=== PATIENT | male | born 1970 | race Caucasian/White ===

== ENCOUNTER 2016-06-02 16:20 | Emergency (ER) | payer MEDICAID, OTHER ==
--- NOTE | 2016-06-02 16:42 | EDM.PDOC ---
ED HPI RENAL/ - General Chief Complaint: Genitourinary Problem Stated Complaint: urine pressure Time Seen by Provider: 06/02/16 16:30 Source of Information: Reports: Patient History Limitations: Reports: No limitations - History of Present Illness INITIAL COMMENTS - FREE TEXT/NARRATIVE: History and physical: History of present illness: [Patient is brought to the emergency room via EMS complaining of lower abdominal pressure and urinary hesitancy. He was brought by ambulance as he does not drive. The patient is deaf. we are able to communicate well through writing and passing notes back and forth. He complains of a pressure in his penis and bladder area as well as difficulty with urination and dribbling. His symptoms began this afternoon. He's not taken any medications for his symptoms. No fever or chills. denies low back pain. No nausea or vomiting. No abdominal pain or decreased appetite. Denies new sexual partners, and has not had any penile discharge. He describes white sediment floating in his urine. No foul odor. Denies any medication allergies. Review of Systems: As per history of present illness and below otherwise all systems reviewed and negative. Past medical history: As per history of present illness and as reviewed below otherwise noncontributory. Surgical history: As per history of present illness and is reviewed below other watson noncontributory. Social history: No reported history of drug or alcohol abuse. Family history: As per history of present illness and is reviewed below otherwise noncontributory. Physical exam: HEENT: Atraumatic, normocephalic. Lungs: Clear to auscultation, breath sounds equal bilaterally,no wheezing crackles or rales. Heart: S1-S2, regular rate and rhythm. Abdomen: Soft, nondistended, nontender. No guarding masses or rebound. Negative for costovertebral tenderness. Pelvis: Stable, nontender. Genitourinary: Deferred. Rectal: Deferred. Extremities atraumatic. no cyanosis or edema to feet or lower legs. Neurovascular unremarkable. Neuro: Awake, alert, oriented. Is deaf. No deficits noted. Motor and sensory unremarkable throughout. Exam nonfocal. Diagnostics: [Urinalysis, urine culture] Therapeutics: [Rocephin 1 g IM, Bactrim DS times one in the ER] Impression: [urinary tract infection] Plan: [UA shows large amount of blood, large amount of leukocyte esterase, greater than 100 white blood cells. Rx written for Bactrim DS BID (#19) si po BID 0 RF's. Rocephin 1 g given IM in the ER. Take home pack for pyridium. Urine culture is pending. Followup with PCP for repeat UA in 7-10 days. All questions are answered and concerns are addressed.] Definitive disposition and diagnosis is appropriate pending reevaluation and review of above. - Related Data Allergies/ADRs: Allergies Allergy/AdvReac Type Severity Reaction Status Date / Time BLEACH Allergy Cannot Uncoded 06/02/16 16:42 Remember DAIRY Allergy Stomach Uncoded 06/02/16 16:42 Upset Home Meds: Home Meds . [No Known Home Meds] 04/17/14 [History] Social & Family History - Tobacco Use Smoking Status *Q: Never Smoker - Alcohol Use Days Per Week of Alcohol Use: 0 - Recreational Drug Use Recreational Drug Use: No ED ROS GENERAL - Review of Systems Review Of Systems: ROS reveals no pertinent complaints other than HPI. ED EXAM, RENAL/ - Physical Exam Exam: See Below Course - Vital Signs Last Recorded V/S: Last Vital Signs Temp 98.2 F 06/02/16 16:20 Pulse 68 06/02/16 16:20 Resp 16 06/02/16 16:20 BP 124/73 06/02/16 16:20 Pulse Ox 95 06/02/16 16:20 - Orders/Labs/Meds Orders: Active Orders 24 hr Category Date Time Status CULTURE URINE [RM] Stat Lab 06/02/16 16:45 Received Sulfamethoxazole/Trimethoprim [Septra DS] Med 06/02/16 17:15 Active 1 tab PO DAILY Medication Orders Trimethoprim/Sulfamethoxazole (Septra Ds) 1 tab PO DAILY KIMBERLEY Labs: Laboratory Tests 06/02/16 Range/Units 16:50 Urine Color Light yellow (YELLOW) Urine Appearance Slightly cloudy (CLEAR) Urine pH 7.0 (4.5-8.0) Ur Specific [place] 1.004 (1.003-1.020) Urine Protein 30 H (NEGATIVE) mg/dL Urine Glucose (UA) Negative (NEGATIVE) mg/dL Urine Ketones Negative (NEGATIVE) mg/dL Urine Occult Blood Large H (NEGATIVE) Urine Nitrite Negative (NEGATIVE) Urine Bilirubin Negative (NEGATIVE) Urine Urobilinogen 0.2 (0.2-1.0) EU/dL Ur Leukocyte Esterase Large H (NEGATIVE) Urine RBC 0-5 (0-5) /HPF Urine WBC >100 H (0-5) /HPF Urine WBC Clumps Moderate H (NOT SEEN) /HPF Ur Epithelial Cells Occasional H (NOT SEEN) /HPF Urine Bacteria Few H (NOT SEEN) /HPF Meds: Medications Generic Name Dose Route Start Last Admin Trade Name Freq PRN Reason Stop Dose Admin Trimethoprim/Sulfamethoxazole 1 tab 06/02/16 17:15 Septra Ds PO DAILY KIMBERLEY Discontinued Medications Generic Name Dose Route Start Last Admin Trade Name Freq PRN Reason Stop Dose Admin Ceftriaxone Sodium 1 gm 06/02/16 17:05 Rocephin IM 06/02/16 17:06 ONETIME ONE Phenazopyridine HCl 1 packet 06/02/16 17:05 Take Home: Phenazopyridine, 4 Tab Pack .XX 06/02/16 17:06 ONETIME ONE Departure - Departure Time of Disposition: 17:15 Disposition: Home, Self-Care 01 Condition: good Clinical Impression: UTI, Urinary tract infectious disease Forms: ED Department Discharge Additional Instructions: The following information is given to patients seen in the emergency department who are being discharged home. This information is to outline your options for follow-up care and provides all patient seen in our emergency department with a follow-up referral. The need for follow-up, as well as the timing and circumstances, are variable depending upon the specifics of each emergency department visit. If you don't have a primary care physician on staff, we will provide you with a referral. We always advise to contact your personal physician following an emergency department visit to inform them of the circumstances of the visit and for follow-up with them and/or the need for any referrals to a consulting specialist. The emergency department will also refer you to a specialist when appropriate. This referral assures that you have the opportunity for follow-up care with a specialist. All of these measures are taken in an effort to provide you with optimal care, which includes your follow-up. Under all circumstances we always encourage you to contact your private physician who remains a resource for coordinating your care. When calling for follow-up care, please make the office aware that this follow-up is from your recent emergency room visit. If for any reason you are refused follow-up please contact the [facility] emergency department at and ask to speak to the emergency department nurse. NET[facility] [address] [address] You've been diagnosed with a urinary tract infection. Followup with your local primary care provider at the clinic listed above in 7 days for a recheck on your urine. Take antibiotics as prescribed. Push fluids, take Tylenol or ibuprofen as needed. Return to ER as needed as discussed. - My Orders Last 24 Hours: My Active Orders 06/02/16 16:45 CULTURE URINE [RM] Stat 06/02/16 17:15 Sulfamethoxazole/Trimethoprim [Septra DS] 1 tab PO DAILY - Assessment/Plan Last 24 Hours: My Active Orders 06/02/16 16:45 CULTURE URINE [RM] Stat 06/02/16 17:15 Sulfamethoxazole/Trimethoprim [Septra DS] 1 tab PO DAILY
[2016-06-02 16:51] VITALS: BP 124/73
[2016-06-02] MEDS ORDERED: cefTRIAXone 1 GM Vial IM ONE (17:05)
[2016-06-02] MEDS ORDERED: Take Home: Phenazopyridine 95 MG Tab, 4 Tab Pack ONE (17:05)
[2016-06-02] MEDS ORDERED: Lidocaine 1% 20 ML MDV ONE (17:13)
[2016-06-02] MEDS ORDERED: Sulfamethoxazole/Trimethoprim 800-160 MG Tab PO SCH (17:15)
== END 2016-06-02 17:45 | disposition home or self-care (01) ==
LOC: CC.ED 16:20
DX: N39.0 Urinary tract infection, site not specified (principal); Z91.011 Allergy to milk products; Z91.09 Other allergy status, other than to drugs and biological substances
CPT/HCPCS: 81001; 87086; 96372; 99284; A9270; J0696

== ENCOUNTER 2017-06-23 00:05 | Emergency (ER) | payer MEDICARE ==
[2017-06-23 00:32] VITALS: BP 97/52
[2017-06-23] MEDS ORDERED: Lidocaine 1% 20 ML MDV INJECT ONE (00:45)
[2017-06-23] MEDS ORDERED: cefTRIAXone 1 GM Vial IM ONE (00:45)
--- NOTE | 2017-06-23 00:45 | EDM.PDOC ---
ED HPI GENERAL MEDICAL PROBLEM - General Chief Complaint: General Stated Complaint: bladder infection Time Seen by Provider: 06/23/17 00:30 Source of Information: Reports: Patient History Limitations: Reports: Language Barrier (is deaf) - History of Present Illness INITIAL COMMENTS - FREE TEXT/NARRATIVE: Patient presents with complaints of cloudy urine, mild abdominal cramping and chills. States has been unable to fall asleep due to chills. Has a long history of bladder infections. Had a colostomy reversal done on June 03, discharged home on the . Was doing well until today. Has loose, watery stools, occasional cramping. Worse this evening. Stools are unchanged. Mild nausea. No fevers. Does still perform self catheterizations which has frequently caused infections in the past. Onset: Today, Gradual Duration: Hour(s): Location: Reports: Abdomen Quality: Reports: Ache Severity: Mild Associated Symptoms: Reports: Fever/Chills, Nausea/Vomiting. Denies: Chest Pain , Cough, Headaches, Loss of Appetite, Shortness of Breath - Related Data Allergies Allergy/AdvReac Type Severity Reaction Status Date / Time sulfamethoxazole Allergy Rash Verified 06/23/17 00:40 BLEACH Allergy Cannot Uncoded 06/23/17 00:14 Remember DAIRY Allergy Stomach Uncoded 06/23/17 00:14 Upset Home Meds: Home Meds Ciprofloxacin HCl [Cipro] 500 mg PO BID #20 tablet 06/23/17 [Rx] Finasteride [Proscar] 5 mg PO DAILY 06/23/17 [History] Past Medical History - Past Health History Medical/Surgical History: Denies Medical/Surgical History HEENT History: Reports: Other (See Below) Other HEENT History: HEARING IMPAIRED Genitourinary History: Reports: UTI, Recurrent - Past Surgical History GI Surgical History: Reports: Colostomy, Other (See Below) Other GI Surgeries/Procedures: RECENT REVERSAL Social & Family History - Family History Family Medical History: Noncontributory - Tobacco Use Smoking Status *Q: Never Smoker Second Hand Smoke Exposure: No - Caffeine Use Caffeine Use: Reports: None - Alcohol Use Days Per Week of Alcohol Use: 0 - Recreational Drug Use Recreational Drug Use: No ED ROS GENERAL - Review of Systems Review Of Systems: See Below Constitutional: Reports: Chills, Malaise, Fatigue. Denies: Fever, Weakness, Decreased Appetite HEENT: Reports: No Symptoms Respiratory: Denies: Shortness of Breath, Cough Cardiovascular: Denies: Chest Pain, Edema, Lightheadedness, Syncope Endocrine: Reports: Fatigue GI/Abdominal: Reports: Abdominal Pain, Diarrhea, Nausea. Denies: Vomiting : Reports: Frequency, Urinary Retention, Other (cloudy urine) Musculoskeletal: Reports: No Symptoms Skin: Reports: No Symptoms Neurological: Reports: No Symptoms ED EXAM, GENERAL - Physical Exam Exam: See Below Exam Limited By: Language Barrier (able to converse well with writing due to deafness) General Appearance: Alert, WD/WN, No Apparent Distress Ears: Normal External Exam Nose: Normal Inspection, Normal Mucosa Throat/Mouth: Normal Inspection, Normal Oropharynx Head: Normocephalic Neck: Normal Inspection, Supple, Non-Tender Respiratory/Chest: No Respiratory Distress, Lungs Clear, Normal Breath Sounds Cardiovascular: Regular Rate, Rhythm GI/Abdominal: Normal Bowel Sounds, Soft, Tender, Other (healing abdominal scar) Extremities: Normal Inspection, Normal Capillary Refill Neurological: Alert, Oriented Skin Exam: Warm, Dry Course - Vital Signs Last Recorded V/S: Last Vital Signs Temp 98.2 F 06/23/17 00:15 Pulse 70 06/23/17 00:15 Resp 18 06/23/17 00:15 BP 97/52 L 06/23/17 00:15 Pulse Ox 98 06/23/17 00:15 - Orders/Labs/Meds Orders: Active Orders 24 hr Category Date Time Status UA W/MICROSCOPIC [URIN] Stat Lab 06/23/17 00:21 Received Departure - Departure Time of Disposition: 00:49 Disposition: Home, Self-Care 01 Condition: Good Clinical Impression: UTI, Urinary tract infectious disease - Discharge Information Referrals: Provider,Unknown [Primary Care Provider] - Additional Instructions: 1. Push fluids 2. Tylenol for fever/chills 3. Cipro 500 mg twice a day for 10 days 4. Follow up if ongoing concerns. - My Orders Last 24 Hours: My Active Orders 06/23/17 00:21 UA W/MICROSCOPIC [URIN] Stat - Assessment/Plan Last 24 Hours: My Active Orders 06/23/17 00:21 UA W/MICROSCOPIC [URIN] Stat
== END 2017-06-23 01:00 | disposition home or self-care (01) ==
LOC: CC.ED 00:05
DX: N39.0 Urinary tract infection, site not specified (principal); Z79.899 Other long term (current) drug therapy; Z88.2 Allergy status to sulfonamides; Z91.011 Allergy to milk products; Z91.09 Other allergy status, other than to drugs and biological substances
CPT/HCPCS: 81001; 87086; 87088; 87186; 96372; 99283; J0696

== ENCOUNTER 2017-07-23 07:26 | Emergency (ER) | payer MEDICARE ==
[2017-07-23 07:34] VITALS: BP 97/74
--- NOTE | 2017-07-23 08:20 | EDM.PDOC ---
ED HPI GENERAL MEDICAL PROBLEM - General Chief Complaint: Genitourinary Problem Stated Complaint: BAD BLADDER INFECTION W/BLOOD Time Seen by Provider: 07/23/17 08:05 Source of Information: Reports: Patient History Limitations: Reports: No Limitations - History of Present Illness INITIAL COMMENTS - FREE TEXT/NARRATIVE: Patient presents today with concerns of a bladder infection. Patient has a history of self catheterization and does get UTIs frequently. He passed a large "mass of tissue or mucous" and has had burning and blood. Denies fevers. States is recovering from bowel surgery but no blood in stools. No other concerns. Onset: Today, Sudden Duration: Hour(s): Location: Reports: Abdomen Quality: Reports: Ache Severity: Mild Associated Symptoms: Denies: Chest Pain, Cough, Fever/Chills, Loss of Appetite, Nausea/Vomiting, Shortness of Breath, Weakness - Related Data Allergies Allergy/AdvReac Type Severity Reaction Status Date / Time sulfamethoxazole Allergy Rash Verified 07/23/17 07:35 BLEACH Allergy Cannot Uncoded 07/23/17 07:35 Remember DAIRY Allergy Stomach Uncoded 07/23/17 07:35 Upset Home Meds: Home Meds Finasteride [Proscar] 5 mg PO DAILY 06/23/17 [History] Past Medical History - Past Health History Medical/Surgical History: Denies Medical/Surgical History HEENT History: Reports: Other (See Below) Other HEENT History: HEARING IMPAIRED Genitourinary History: Reports: UTI, Recurrent - Past Surgical History GI Surgical History: Reports: Colostomy, Other (See Below) Other GI Surgeries/Procedures: RECENT REVERSAL Social & Family History - Family History Family Medical History: Noncontributory - Tobacco Use Smoking Status *Q: Never Smoker - Caffeine Use Caffeine Use: Reports: None - Recreational Drug Use Recreational Drug Use: No ED ROS GENERAL - Review of Systems Review Of Systems: See Below Constitutional: Reports: Malaise. Denies: Fever, Chills, Weakness, Fatigue, Decreased Appetite HEENT: Reports: No Symptoms Respiratory: Denies: Shortness of Breath, Cough Cardiovascular: Denies: Chest Pain, Edema, Lightheadedness Endocrine: Denies: Fatigue GI/Abdominal: Reports: Abdominal Pain. Denies: Black Stool, Bloody Stool, Nausea, Vomiting : Reports: Discharge, Dysuria, Hematuria Musculoskeletal: Reports: No Symptoms Skin: Reports: No Symptoms ED EXAM, RENAL/ - Physical Exam Exam: See Below Exam Limited By: Other (patient is deaf) General Appearance: Alert, WD/WN, No Apparent Distress Ears: Normal External Exam, Normal TMs Head: Normocephalic Neck: Normal Inspection, Supple, Non-Tender Respiratory/Chest: No Respiratory Distress, Lungs Clear, Normal Breath Sounds Cardiovascular: Regular Rate, Rhythm GI/Abdominal: Normal Bowel Sounds, Soft, Non-Tender Extremities: Normal Inspection, Normal Capillary Refill Neurological: Alert, Oriented Course - Vital Signs Last Recorded V/S: Last Vital Signs Temp 96.8 F 07/23/17 07:31 Pulse 71 07/23/17 07:31 Resp 18 07/23/17 07:31 BP 97/74 07/23/17 07:31 Pulse Ox 98 07/23/17 07:31 - Orders/Labs/Meds Orders: Active Orders 24 hr Category Date Time Status CULTURE URINE [RM] Stat Lab 07/23/17 08:27 Received Labs: Laboratory Tests 07/23/17 Range/Units 08:27 Urine Color Yellow (YELLOW) Urine Appearance Slightly cloudy (CLEAR) Urine pH 6.0 (4.5-8.0) Ur Specific [place] <= 1.005 (1.003-1.020) Urine Protein 100 H (NEGATIVE) mg/dL Urine Glucose (UA) Negative (NEGATIVE) mg/dL Urine Ketones Negative (NEGATIVE) mg/dL Urine Occult Blood Large H (NEGATIVE) Urine Nitrite Negative (NEGATIVE) Urine Bilirubin Negative (NEGATIVE) Urine Urobilinogen 0.2 (0.2-1.0) EU/dL Ur Leukocyte Esterase Large H (NEGATIVE) Urine RBC 5-10 H (0-5) /HPF Urine WBC >100 H (0-5) /HPF Ur Squamous Epith Cells Occasional H (NOT SEEN) /HPF Urine Bacteria Moderate H (NOT SEEN) /HPF Urinalysis Comment - Re-Assessments/Exams Free Text/Narrative Re-Assessment/Exam: 07/23/17 08:50 Urine is positive Departure - Departure Time of Disposition: 08:51 Disposition: Home, Self-Care 01 Condition: Good Clinical Impression: UTI, Urinary tract infectious disease - Discharge Information Referrals: PCP,None [Primary Care Provider] - Forms: ED Department Discharge Additional Instructions: 1. Push fluids 2. Cipro 500 mg twice a day for 10 days 3. Return if any concerns or questions - My Orders Last 24 Hours: My Active Orders 07/23/17 08:27 CULTURE URINE [RM] Stat - Assessment/Plan Last 24 Hours: My Active Orders 07/23/17 08:27 CULTURE URINE [RM] Stat
== END 2017-07-23 08:55 | disposition home or self-care (01) ==
LOC: CC.ED 07:26
DX: N39.0 Urinary tract infection, site not specified (principal); Z91.011 Allergy to milk products; Z88.8 Allergy status to other drugs, medicaments and biological substances; Z88.2 Allergy status to sulfonamides
CPT/HCPCS: 81001; 87086; 99283

== ENCOUNTER 2017-12-13 17:50 | Emergency (ER) | payer MEDICARE, OTHER ==
[2017-12-13 17:57] VITALS: BP 113/77
[2017-12-13] MEDS ORDERED: Diphtheria,Pertussis(Acell),Tetanus Vaccine 0.5 ML Syringe IM ONE (18:07)
--- NOTE | 2017-12-13 18:11 | EDM.PDOC ---
ED HPI GENERAL MEDICAL PROBLEM - General Chief Complaint: Skin Complaint Stated Complaint: head laceration Time Seen by Provider: 12/13/17 18:06 Source of Information: Reports: Patient History Limitations: Reports: No Limitations - History of Present Illness Onset: Today Duration: Hour(s): Location: Reports: Head Quality: Reports: Other (no headache or pain.) Worsens with: Reports: None Associated Symptoms: Reports: No Other Symptoms - Related Data Allergies Allergy/AdvReac Type Severity Reaction Status Date / Time sulfamethoxazole Allergy Rash Verified 12/13/17 17:51 BLEACH Allergy Cannot Uncoded 12/13/17 17:51 Remember DAIRY Allergy Stomach Uncoded 12/13/17 17:51 Upset Home Meds: Home Meds Finasteride [Proscar] 5 mg PO DAILY 06/23/17 [History] Past Medical History - Past Health History Medical/Surgical History: Denies Medical/Surgical History HEENT History: Reports: Other (See Below) Other HEENT History: HEARING IMPAIRED Genitourinary History: Reports: UTI, Recurrent - Past Surgical History GI Surgical History: Reports: Colostomy, Other (See Below) Other GI Surgeries/Procedures: RECENT REVERSAL Social & Family History - Family History Family Medical History: Noncontributory - Caffeine Use Caffeine Use: Reports: None ED ROS GENERAL - Review of Systems Review Of Systems: See Below Constitutional: Reports: No Symptoms HEENT: Reports: No Symptoms Respiratory: Reports: No Symptoms Cardiovascular: Reports: No Symptoms GI/Abdominal: Reports: No Symptoms Musculoskeletal: Reports: No Symptoms Skin: Reports: Other (laceration top of scalp right parietal area.) Neurological: Reports: No Symptoms Psychiatric: Reports: No Symptoms ED EXAM, SKIN/RASH Exam: See Below Exam Limited By: No Limitations General Appearance: Alert, WD/WN, No Apparent Distress Eye Exam: Bilateral Eye: EOMI, PERRL Ears: Normal External Exam, Normal Canal, Hearing Grossly Normal Nose: Normal Inspection, Normal Mucosa, No Blood Throat/Mouth: Normal Inspection, Normal Lips, Normal Teeth, Normal Gums, No Airway Compromise Head: Atraumatic, Normocephalic Neck: Normal Inspection, Supple, Non-Tender, Full Range of Motion Neurological: Alert, Oriented, CN II-XII Intact, Normal Cognition, Normal Gait, No Motor/Sensory Deficits Psychiatric: Normal Affect, Normal Mood Skin: Warm, Dry, Normal Color, No Rash, Other (2 cm laceration to top of scalp parietal area; bleeding controlled.) ED SKIN PROCEDURES - Laceration/Wound Repair Head Appearance: Superficial, Linear, Clean Distal NVT: Neuro & Vascular Intact Anesthetic Type: Other (none) Exploration/Debridement/Repair: Wound Explored Closed with: Piper Sterile Dressing Applied: None Tetanus Status Addressed: Yes Complications: No Course - Vital Signs Text/Narrative:: Bleeding controlled. Stable. Last Recorded V/S: Last Vital Signs Temp 36.3 C 12/13/17 17:52 Pulse 63 12/13/17 17:52 Resp 20 12/13/17 17:52 BP 113/77 12/13/17 17:52 Pulse Ox 95 12/13/17 17:52 - Orders/Labs/Meds Meds: TDAP Departure - Departure Time of Disposition: 18:42 Disposition: Home, Self-Care 01 Condition: Good Clinical Impression: Laceration - Discharge Information *PRESCRIPTION DRUG MONITORING PROGRAM REVIEWED*: Not Applicable *COPY OF PRESCRIPTION DRUG MONITORING REPORT IN PATIENT JV: Not Applicable Additional Instructions: Keep area clean and dry. Return to have piper removed in 10 days. May take tylenol or Ibuprofen for pain as directed. - Problem List & Annotations (1) Laceration SNOMED Code(s): 686680605 Code(s): [id number] - Status: Acute - Problem List Review Problem List Initiated/Reviewed/Updated: Yes - Assessment/Plan Assessment:: Scalp laceration, 5 piper applied. TDAP given. Instructed patient to keep area clean and dry. Plan: Return to clinic to have piper removed in 10 days.
== END 2017-12-13 18:50 | disposition home or self-care (01) ==
LOC: CC.ED 17:50
DX: S01.01XA Laceration without foreign body of scalp, initial encounter (principal); Z23 Encounter for immunization; Z88.8 Allergy status to other drugs, medicaments and biological substances; Z91.011 Allergy to milk products; Z88.2 Allergy status to sulfonamides; Z79.899 Other long term (current) drug therapy; X58.XXXA Exposure to other specified factors, initial encounter
CPT/HCPCS: 12001; 90471; 90715; 99282; 99283

== ENCOUNTER 2020-07-30 21:34 | Emergency (ER) | payer MEDICARE ==
[2020-07-30] MEDS: Ondansetron 4 MG/2 ML SDV IVPUSH STA ×2 (21:58→23:21)
[2020-07-30] MEDS: Morphine 4 MG/ML VIAL IVPUSH ONE ×2 (22:03→22:48)
[2020-07-30 22:21] LABS: CHLORIDE,CL 105 mEq/L (98-106); SODIUM,NA 143 mEq/L (136-145)
[2020-07-30] MEDS: Iopamidol 755 Mg/ML 100 ML Bottle IVPUSH ONE (22:50)
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
[2020-07-30] MEDS: HYDROmorphone 1 MG/ML Syringe IVPUSH ONE (23:25)
[2020-07-31 00:16] VITALS: BP 125/100; PULSE 97
[2020-07-31] MEDS: HYDROmorphone 1 MG/ML Syringe IVPUSH ONE (01:33)
== END 2020-07-31 02:05 ==
LOC: CC.ED 21:34
DX: S27.1XXA Traumatic hemothorax, initial encounter (principal); S22.42XA Multiple fractures of ribs, left side, initial encounter for closed fracture; Y90.7 Blood alcohol level of 200-239 mg/100 ml; V86.59XA Driver of other special all-terrain or other off-road motor vehicle injured in nontraffic accident, initial encounter; Z79.899 Other long term (current) drug therapy
CPT/HCPCS: 36415; 70450; 71045; 71260; 72125; 74177; 80053; 80307; 81003; 82150; 82550; 83605; 83615; 84484; 85025; 85610; 93005; 93010; 96374; 96375; 96376; 99284; 99285-25; J1170; J2270; J2405; J3360; Q9967